=== PATIENT | male | born 1960 | race Caucasian/White ===

== ENCOUNTER 2017-07-12 05:18 | Emergency (ER) | payer OTHER ==
[~2017-07-12] VITALS: Ht 185.4 cm; Wt 89.2 kg
[~2017-07-12 05:18] MED LIST: ATOR20TA66 PO; CARV3.12 PO; CLOP75TA35 PO; FENO145T38 PO; LISI-643 PO; NITR0.4T51 SL; OMEG1CAP13 PO
[2017-07-12] MEDS ORDERED: naproxen 500mg tablet PO ONE (08:05)
[2017-07-12] MEDS ORDERED: magnesium oxide 400mg tablet PO ONE (08:05)
[2017-07-12 08:11] LABS: BASOPHILS # (AUTO) 0.1 X10'3 (0-0.2); EOSINOPHILS # (AUTO) 0.5 X10'3 (0-0.9); EOSINOPHILS % (AUTO) 9.7 % (0-6); HEMATOCRIT 41.2 % (42.0-52.0); HEMOGLOBIN 14.5 g/dl (14.0-17.9); LYMPHOCYTES # (AUTO) 1.4 X10'3 (1.1-4.8); LYMPHOCYTES % (AUTO) 26.2 % (21-51); MEAN CORPUSCULAR HEMOGLOBIN 32.2 PG (27.0-31.0); MEAN CORPUSCULAR HGB CONC 35.2 % (33.0-36.5); MEAN CORPUSCULAR VOLUME 91.5 FL (78-98); MEAN PLATELET VOLUME 7.8 FL (7.4-10.4); MONOCYTES # (AUTO) 0.6 X10'3 (0-0.9); MONOCYTES % (AUTO) 11.2 % (2-12); NEUTROPHILS # (AUTO) 2.8 X10'3 (1.8-7.7); NEUTROPHILS % (AUTO) 51.9 % (42-75); PLATELET COUNT 179 X10'3 (140-440); RED CELL DISTRIBUTION WIDTH 14.3 % (11.5-14.5); WHITE BLOOD COUNT 5.3 X10'3 (4.5-11.0)
[2017-07-12 08:21] LABS: PARTIAL THROMBOPLASTIN TIME 25 SECONDS (22-32); PROTHROMBIN TIME 10.4 SECONDS (9.0-12.0)
[2017-07-12 08:26] LABS: ALANINE AMINOTRANSFERASE 27 U/L (12-78); ALBUMIN 3.6 G/DL (3.4-5.0); ALBUMIN/GLOBULIN RATIO 1.1 (1.1-1.5); ALKALINE PHOSPHATASE 63 IU/L (46-116); ANION GAP 10 (8-16); ASPARTATE AMINO TRANSFERASE 29 U/L (10-37); BILIRUBIN,TOTAL 0.5 MG/DL (0.1-1.0); BLOOD UREA NITROGEN 16 MG/DL (7-18); BUN/CREATININE RATIO 16.2 (5.4-32.0); CALCIUM 9.4 MG/DL (8.5-10.1); CHLORIDE 107 MMOL/L (99-107); CREATININE 0.99 MG/DL (0.60-1.10); GLUCOSE 105 MG/DL (70-104); POTASSIUM 4.6 MMOL/L (3.5-5.1); SODIUM 141 MMOL/L (135-145); TOTAL CARBON DIOXIDE 24.4 MMOL/L (24-32); eGFR 78 ML/MIN
[2017-07-12 08:46] VITALS: BP 128/88
== END 2017-07-12 08:48 | disposition home or self-care (01) ==
LOC: ER 05:18
DX: R07.89 Other chest pain (principal); M54.6 Pain in thoracic spine; G89.29 Other chronic pain; J45.909 Unspecified asthma, uncomplicated; E78.00 Pure hypercholesterolemia, unspecified; Z90.49 Acquired absence of other specified parts of digestive tract; Z79.899 Other long term (current) drug therapy
CPT/HCPCS: 36415; 71045; 80053; 83735; 84484; 85025; 85610; 85730; 93005; 99285

== ENCOUNTER 2018-03-28 04:21 | Emergency (ER) | payer OTHER ==
[~2018-03-28] VITALS: Ht 185.4 cm; Wt 88.8 kg
[2018-03-28] MEDS ORDERED: acetaminophen 325mg tablet PO ONE (04:55)
[2018-03-28] MEDS ORDERED: LIDOcaine 5% patch TP ONE (05:05)
[2018-03-28] MEDS ORDERED: triamcinolone acetonide 40mg/ml inj IM ONE (05:30)
[2018-03-28] MEDS ORDERED: LIDO700A32 TOP (05:33)
[2018-03-28] MEDS ORDERED: HYDR-3965 PO (05:46)
[2018-03-28 05:47] VITALS: BP 161/101
== END 2018-03-28 05:53 | disposition home or self-care (01) ==
LOC: ER 04:21
DX: R22.1 Localized swelling, mass and lump, neck (principal); I10 Essential (primary) hypertension; J45.909 Unspecified asthma, uncomplicated; G89.29 Other chronic pain; Z90.49 Acquired absence of other specified parts of digestive tract; Z79.899 Other long term (current) drug therapy
CPT/HCPCS: 20552; 72052; 93005; 99284; J3301

== ENCOUNTER → 2018-04-27 | Emergency (ER) | payer OTHER ==
[~2018-04-27] VITALS: Ht 185.4 cm; Wt 110.0 kg
[~2018-04-27] MED LIST changes: +EPIN0.3P17 IM; +HYDR-3965 PO; +LIDO700A32 TOP; +PRED10TA PO; +diphenhydrAMINE 50 mg/ml inj IV ONE; +famotidine/PF 10 mg/ml inj IV ONE; +methylPREDNISolone sod succ 125mg/2ml vial IV ONE; +normal saline 1000ML IV soln IVB STA
[2018-04-27 20:37] VITALS: BP 142/97
== END | disposition home or self-care (01) ==
LOC: ER 20:30
DX: R21 Rash and other nonspecific skin eruption (principal); T78.1XXA Other adverse food reactions, not elsewhere classified, initial encounter; E78.00 Pure hypercholesterolemia, unspecified; J45.909 Unspecified asthma, uncomplicated; G89.29 Other chronic pain; Z90.49 Acquired absence of other specified parts of digestive tract; Z79.899 Other long term (current) drug therapy; Y92.89 Other specified places as the place of occurrence of the external cause
CPT/HCPCS: 96374; 96375; 99283; J1200; J2930; J3490; J7030

== ENCOUNTER 2020-08-12 03:12 | Emergency (ER) | payer OTHER ==
[~2020-08-12] VITALS: Ht 185.4 cm; Wt 109.2 kg
[~2020-08-12 03:12] MED LIST changes: +CLOP75TA34 PO; -CLOP75TA35 PO; -HYDR-3965 PO; -diphenhydrAMINE 50 mg/ml inj IV ONE; -famotidine/PF 10 mg/ml inj IV ONE; -methylPREDNISolone sod succ 125mg/2ml vial IV ONE; -normal saline 1000ML IV soln IVB STA
[2020-08-12 03:17] VITALS: BP 136/77
[2020-08-12] MEDS ORDERED: morphine 4 MG/ML inj SYRINge IM ONE (03:50)
[2020-08-12 04:29] LABS: BASOPHILS # (AUTO) 0.1 X10'3 (0-0.2); BASOPHILS % (AUTO) 1.4 % (0-1); EOSINOPHILS # (AUTO) 0.3 X10'3 (0-0.9); EOSINOPHILS % (AUTO) 5.5 % (0-6); HEMATOCRIT 40.6 % (42.0-52.0); HEMOGLOBIN 14.1 g/dl (14.0-17.9); LYMPHOCYTES # (AUTO) 1.9 X10'3 (1.1-4.8); LYMPHOCYTES % (AUTO) 39.2 % (21-51); MEAN CORPUSCULAR HEMOGLOBIN 33.6 PG (27.0-31.0); MEAN CORPUSCULAR HGB CONC 34.8 g/dL (33.0-36.5); MEAN CORPUSCULAR VOLUME 96.5 FL (78-98); MEAN PLATELET VOLUME 8.6 FL (7.4-10.4); MONOCYTES # (AUTO) 0.5 X10'3 (0-0.9); MONOCYTES % (AUTO) 9.5 % (2-12); NEUTROPHILS # (AUTO) 2.1 X10'3 (1.8-7.7); NEUTROPHILS % (AUTO) 44.4 % (42-75); PLATELET COUNT 188 X10'3 (140-440); RED CELL DISTRIBUTION WIDTH 13.2 % (11.5-14.5); WHITE BLOOD COUNT 4.8 X10'3 (4.5-11.0)
[2020-08-12 04:33] LABS: ALBUMIN 3.3 G/DL (3.4-5.0); ALBUMIN/GLOBULIN RATIO 1.1 (1.1-1.5); ALKALINE PHOSPHATASE 64 IU/L (46-116); BILIRUBIN,TOTAL 1.1 MG/DL (0.1-1.0); BLOOD UREA NITROGEN 16 MG/DL (7-18); BUN/CREATININE RATIO 15.1 (5.4-32.0); CALCIUM 9.3 MG/DL (8.5-10.1); CREATININE 1.06 MG/DL (0.60-1.10); LIPASE 140 U/L (73-393); TOTAL PROTEIN 6.3 G/DL (6.4-8.2); eGFR 72 ML/MIN
[2020-08-12 04:39] LABS: CLARITY,URINE CLEAR (Clear); COLOR,URINE STRAW (Yellow); GLUCOSE, URINE NEGATIVE (Neg); KETONES,URINE NEGATIVE (Neg); LEUKOCYTE ESTERASE ,URINE NEGATIVE (Neg); NITRITES, URINE NEGATIVE (Neg); OCCULT BLOOD,URINE NEGATIVE (Neg); PROTEIN,URINE NEGATIVE (Neg); UROBILINOGEN,URINE 0.2 E.U/dL (0.2-1.0)
[2020-08-12 04:44] LABS: UA COLLECTION TYPE CLN CATCH MIDSTREAM
[2020-08-12 04:58] LABS: ALANINE AMINOTRANSFERASE 43 U/L (12-78); ANION GAP 11 (8-16); CHLORIDE 105 MMOL/L (99-107); GLUCOSE 111 MG/DL (70-104); POTASSIUM 3.8 MMOL/L (3.5-5.1); SODIUM 139 MMOL/L (135-145)
[2020-08-12 05:08] LABS: ASPARTATE AMINO TRANSFERASE 71 U/L (10-37)
[2020-08-12] MEDS ORDERED: HYDR-3965 PO (05:56)
== END 2020-08-12 09:06 | disposition home or self-care (01) ==
LOC: ER 03:13
DX: M54.5 Low back pain (principal); R10.32 Left lower quadrant pain; I25.10 Atherosclerotic heart disease of native coronary artery without angina pectoris; G89.29 Other chronic pain; J45.909 Unspecified asthma, uncomplicated; E78.00 Pure hypercholesterolemia, unspecified; Z72.89 Other problems related to lifestyle; Z90.49 Acquired absence of other specified parts of digestive tract; Z79.899 Other long term (current) drug therapy
CPT/HCPCS: 36415; 76700; 80053; 81003; 83690; 85025; 96372; 99284; J2270

== ENCOUNTER 2021-05-22 02:57 | Emergency (ER) | payer OTHER ==
[~2021-05-22] VITALS: Ht 185.4 cm; Wt 109.1 kg
--- NOTE | 2021-05-22 03:19 | NUR ---
Called poison control - advised to repeat ekg 4-6 hours, qtc interval greater than 500, give magnesium. For any PROCESSING OPERATOR/Respiratory depression, use narcan. Recommended an 8 hour observation period. However, if pt becomes overly sedated, add 4-6 hours of observation time. Otherwise, continue with supportive care.
[2021-05-22 03:28] LABS: BASOPHILS % (AUTO) 0.4 % (0-1); EOSINOPHILS % (AUTO) 0.2 % (0-6); HEMATOCRIT 42.1 % (42.0-52.0); HEMOGLOBIN 14.1 g/dl (14.0-17.9); LYMPHOCYTES # (AUTO) 1.2 X10'3 (1.1-4.8); LYMPHOCYTES % (AUTO) 12.6 % (21-51); MEAN CORPUSCULAR HEMOGLOBIN 31.7 PG (27.0-31.0); MEAN CORPUSCULAR HGB CONC 33.5 g/dL (33.0-36.5); MEAN CORPUSCULAR VOLUME 94.7 FL (78-98); MEAN PLATELET VOLUME 7.7 FL (7.4-10.4); MONOCYTES # (AUTO) 0.8 X10'3 (0-0.9); MONOCYTES % (AUTO) 8.6 % (2-12); NEUTROPHILS # (AUTO) 7.1 X10'3 (1.8-7.7); NEUTROPHILS % (AUTO) 78.2 % (42-75); PLATELET COUNT 267 X10'3 (140-440); RED BLOOD COUNT 4.44 X10'6 (4.70-6.10); RED CELL DISTRIBUTION WIDTH 12.9 % (11.5-14.5); WHITE BLOOD COUNT 9.1 X10'3 (4.5-11.0)
[2021-05-22 03:43] LABS: ALANINE AMINOTRANSFERASE 23 U/L (12-78); ALBUMIN 3.5 G/DL (3.4-5.0); ALBUMIN/GLOBULIN RATIO 0.9 (1.1-1.5); ALKALINE PHOSPHATASE 84 IU/L (46-116); ANION GAP 13 (8-16); ASPARTATE AMINO TRANSFERASE 26 U/L (10-37); BILIRUBIN,TOTAL 0.7 MG/DL (0.1-1.0); BLOOD UREA NITROGEN 16 MG/DL (7-18); BUN/CREATININE RATIO 15.1 (5.4-32.0); CHLORIDE 101 MMOL/L (99-107); CREATININE 1.06 MG/DL (0.60-1.10); GLUCOSE 148 MG/DL (70-104); POTASSIUM 4.3 MMOL/L (3.5-5.1); SODIUM 136 MMOL/L (135-145); TOTAL CARBON DIOXIDE 22.3 MMOL/L (24-32); TOTAL PROTEIN 7.4 G/DL (6.4-8.2); eGFR 72 ML/MIN
[2021-05-22 05:12] VITALS: BP 144/86
[2021-05-22 05:31] LABS: ETHANOL < 0.010 GM/DL (0.0-0.010)
--- NOTE | 2021-05-22 07:16 | NUR ---
Dr Loyd in to assess patient at this time. Patient awake, alert, sitting up in bed, answering questions appropriately. Phone provided to speak with . Per MD patient stable for DC at this time. Pat states he has an appointment with PCP at 0915 this AM.
== END 2021-05-22 08:05 | disposition home or self-care (01) ==
LOC: ER 02:58
DX: G93.41 Metabolic encephalopathy (principal); I25.10 Atherosclerotic heart disease of native coronary artery without angina pectoris; E78.00 Pure hypercholesterolemia, unspecified; J45.909 Unspecified asthma, uncomplicated; G89.29 Other chronic pain; Z90.89 Acquired absence of other organs; Z72.89 Other problems related to lifestyle; Z79.899 Other long term (current) drug therapy
CPT/HCPCS: 36415; 71045; 80053; 80320; 80329; 83735; 83880; 84484; 85025; 93005; 99285